=== PATIENT | male | born 1975 | race African-American/Black ===

== ENCOUNTER 2016-09-12 12:28 | Emergency (ER) | payer MEDICAID ==
[~2016-09-12] VITALS: Ht 182.9 cm; Wt 90.7 kg
--- NOTE | 2016-09-12 12:52 | NUR ---
PT WAS EVALUATED BY DR VASQUES. PT WAS D/C TO HOME. D/C INSTRUCTIONS GIVEN TO THE PT.
[2016-09-12 12:54] VITALS: BP 131/82
== END 2016-09-12 12:55 | disposition home or self-care (01) ==
LOC: ER 12:28
DX: M54.40 Lumbago with sciatica, unspecified side (principal)
CPT/HCPCS: 99283; A4663